=== PATIENT | female | born 1950 | race Caucasian/White ===

== ENCOUNTER 2025-08-26 06:55 | Outpatient (REF) | payer MEDICARE, SELFPAY ==
--- OUTSIDE RECORDS SUMMARY | 2011-04-29 14:00 | XMS_ITS | Continuity of Care Document ---
Author Organization [facility] Address [address] [place] [id number] Phone Care Team Providers Care Last Model Department Supervisor Name Role Phone No Information Unavailable Unavailable Advance Directives Directive Yes / No Effective Date File Name No Information Encounters Encounter Description Practice Location Reason(s) For Visit Diagnoses Date Provider [facility], [address] [place] [address], [place], [place], [id number], tel:[phone] [facility] No Information No Information [facility], [address] [place] [address], [id number], tel:[phone] [facility] Cervical spondylosis without myelopathyOpioid type dependence, continuous useDegeneration of cervical intervertebral discBrachial neuritis or radiculitis nosLong-term (current) use of other medications Jai Garcia. [address] [place] [address], [place], [place], [id number], . tel:[phone] Family History Family Member Type Diagnosis Age At Onset No Information Payers Payer name Insurance type Covered alliance party ID Authoriza tion(s) No Information Social History Type Description Quantity Date Captured Comments Sex Female Smoking Status No Information Chief Complaint And Reason For Visit No Information History Of Present Illness Encounter Date Complaint History Of Prese nt Illness No Information Instructions Date Instruction Additional Infor mation No Information Assessments Type Assessment Date No Information
== END 2025-08-26 06:56 | disposition home or self-care (01) ==
LOC: HO.MMNH2L 06:55
PROVIDERS: Visit Provider Student in an Organized Health Care Education/Training Program
DX: Z13.89 Encounter for screening for other disorder (principal)